=== PATIENT | female | born 1965 | race Asian ===

== ENCOUNTER → 2024-05-08 | Outpatient (CLI) | payer MEDICAID ==
[~2024-05-08] VITALS: Ht 160 cm; Wt 61.7 kg
[~2024-05-08] MED LIST: NAPR-1154 PO
[2024-05-08] MEDS: albuterol 2.5 MG/3 ML nebule NEB ONE (10:55)
[2024-05-08 10:56] VITALS: PULSE 68; RESP 16; O2SAT 99
[2024-05-08 11:19] VITALS: PULSE 86; RESP 14
== END | disposition home or self-care (01) ==
LOC: RT 10:26
PROVIDERS: ATTEND Physician Assistant
DX: R94.2 Abnormal results of pulmonary function studies (principal); J45.41 Moderate persistent asthma with (acute) exacerbation
CPT/HCPCS: 94060; 94760